=== PATIENT | female | born 1925 | race Caucasian/White ===

== ENCOUNTER 2016-04-10 15:44 | Emergency (ER) | payer MEDICARE, MEDICAID ==
[~2016-04-10] VITALS: Ht 162.6 cm; Wt 54.4 kg
[~2016-04-10 15:44] MED LIST: AMLO10TA2 PO; ASPI-983 PO; CALC667C10 PO; CEFD300C3 PO; CHLO500T2 PO; CHOL20002 PO; CLON1TAB3 PO; CLOP75TA28 PO; CNC1KV IM; DOCU-143 PO; FERR-74 PO; FURO20TA4 PO; GABA-486 PO; HYDR-1231 PO; HYDR-3816 PO; LEVO250T7 PO; NITR100C PO; POLY17PO6 PO; POTA10CA43 PO; SODI650T PO; THIA100T12 PO
--- OUTSIDE RECORDS SUMMARY | 2016-04-10 15:48 | XMS REPORT | Continuity of Care Document ---
Author Author [facility] Organization [facility] Address Unknown Phone Unavailable Care Team Providers Care [place] Inspector Name Role Phone JARED GRIFFITH MD PCP Insurance Providers Payer Name Policy Number Subscriber Name Relationship Wps Medicare [id number] Mukesh Lucia W 18 Self / Same As Patient [facility] [id number] Mukesh Lucia W 18 Self / Same As Patient Advance Directives Directive Response Recorded Date/Time Advance Directives Yes 11/26/15 11:08am Health Care Power of Marine Structural Welder SERA GIORDANO 11/26/15 11:08am Organ Donor No 11/26/15 11:08am Resuscitation Status Full Code 11/26/15 11:08am Chief Complaint and Reason for Visit Chief Complaint Neurological Problems Reason for Visit Urinary tract infection Chronic disease anemia [id number] Problems Active Problems Medical Problem Onset Date Status Anemia Unknown Acute Chronic disease anemia Unknown Acute Chronic kidney disease (CKD), stage III (moderate) Unknown Acute Chronic renal failure Unknown Acute Renal insufficiency Unknown Acute Urinary tract infection Unknown Acute Medications Current Home Medications Medication Dose Units Route Directions Days/Qty Instructions Start Date Aspirin 81 Mg 81 Mg Oral Daily 10/08/15 Docusate Sodium 100 Mg 100 Mg Oral Daily 10/08/15 Potassium Chloride 10 Meq 10 Meq Oral Daily 10/08/15 Polyethylene Glycol 3350 17 Gm 17 Gm Oral Bedtime 10/08/15 Amlodipine Besylate 10 Mg 10 Mg Oral Daily 10/08/15 Clopidogrel Bisulfate 75 Mg 75 Mg Oral Daily 10/08/15 Thiamine Hcl 100 Mg 100 Mg Oral Daily 10/08/15 Cholecalciferol (Vitamin D3) 2,000 Unit 4,000 Unit Oral Daily TAKES 2 ( 2,000 UNIT) CAPSULES 10/08/15 Gabapentin 100 Mg 100 Mg Oral Twice A Day 10/08/15 Chlorzoxazone 500 Mg 500 Mg Oral Three Times A Day 10/08/15 Calcium Acetate 667 Mg 667 Mg Oral Three Times A Day 10/08/15 Sodium Bicarbonate 650 Mg 650 Mg Oral Three Times A Day 10/08/15 Cyanocobalamin 1,000 Mcg/Ml 1,000 Mcg Intramusc Every 60 Days Clonazepam 1 Mg 1 Mg Oral Twice A Day 10/08/15 Hydrocodone/Acetaminophen 1 Each 2 Tab Oral Three Times A Day 20 10/09 Ferrous Sulfate 325 Mg 325 Mg Oral Every 48 Hours 30 Days 10/10/15 Cefdinir (Omnicef) 300 Mg 300 Mg Oral Twice A Day 10 10/10/15 Cefdinir (Omnicef) 300 Mg 300 Mg Oral Twice A Day 14 11/26/15 Past Home Medications Medication Directions Ordered Status Levofloxacin 250 Mg Tab, 1 Each Oral Daily 04/16/14 Discontinued Hydrocodone Bit/Acetaminophen 1 Tab Tablet, 0.5 Tab Oral Every 6 Hours as needed for Pain 04/16/14 Discontinued Nitrofurantoin Macrocrystal 100 Mg Capsule, 100 Mg Oral Twice A Day 04/20/14 Discontinued Furosemide 20 Mg Tablet, 20 Mg Oral Daily 10/08/15 Discontinued Hydrocodone/Acetaminophen 1 Each Tablet, 2 Tab Oral Three Times A Day Discontinued Social History Social History Problem Response Recorded Date/Time Alcohol Use Denies Use 04/16/2014 10:12am Recreational Drug Use No 04/16/2014 10:12am Recent Foreign Travel No 11/26/2015 11:08am Recent Infectious Disease Exposure No 11/26/2015 11:08am Hospitalization with Isolation Denies 11/26/2015 11:08am Smoking Status Never a Smoker 11/26/2015 11:08am Recent Hopitalizations No 11/26/2015 11:08am Hospitalization with Isolation Denies 11/26/2015 11:08am Query Response Start Date Stop Date Smoking Status Never a Smoker Hospital Discharge Instructions No hospital discharge instructions. Plan of Care Discharge Date 11/26/15 3:39pm Disposition 01 HOME, SELF-CARE Condition at Discharge Improved Instructions/Education Provided Urinary Tract Infection in Women (ED) Prescriptions See Medication Section Referrals JARED GRIFFITH MD - Primary Care Physician Additional Instructions/Education All discharge instructions reviewed with patient and/or family. Voiced understanding. Medications as instructed. Continue all current medications and orders. Continue current diet. Ambulate with assistance of the walker. I will see patient next week at [facility]. Return to the emergency department immediately for recurrent weakness, slurred speech, changes in behavior, dizziness, headache, facial drooping, inability urinate, blood in the urine, fever, vomiting, or any other concerns. Functional Status Query Response Date Recorded Patient Orientation Person Confused Place Situation November 26, 2015 11:08am Comprehension Ability Understands Concepts November 26, 2015 11:08am Allergies, Adverse Reactions, Alerts Allergen Type Severity Reaction Status Last Updated Penicillins ([id number]) Allergy Unknown Active 04/16/14 Immunizations No immunization records. Vital Signs Acute Vital Signs Vital Response Date/Time Temperature (Fahrenheit) 97.8 degrees F (97.6 - 99.5) 11/26/2015 11:08am Temperature (Calculated Celsius) 36.46946 degrees C (36.4 - 37.5) 11/26/2015 11:08am Temperature Source Temporal 11/26/2015 11:08am Pulse Rate (adult) 86 bpm (60 - 90) 11/26/2015 3:39pm Respiratory Rate 18 bpm (12 - 24) 11/26/2015 3:39pm O2 Sat by Pulse Oximetry 94 % (88 - 100) 11/26/2015 3:39pm Blood Pressure 156/78 mm Hg 11/26/2015 3:39pm Blood Pressure Mean 112 mm Hg 11/26/2015 11:08am Pain Numeric Pain Scale 0-No Pain 11/26/2015 11:08am Height (Feet) 5 feet 11/26/2015 11:08am Height (Inches) 5 inches 11/26/2015 11:08am Height (Calculated Centimeters) 165.693901 cm 11/26/2015 11:08am Weight (Pounds) 160 pounds 11/26/2015 11:08am Weight (Calculated Kilograms) 72.497599 kilograms 11/26/2015 11:08am Capillary Refill Capillary Refill Less Than 3 Seconds 11/26/2015 11:08am Height 5 ft 5 in Weight 160 lb Body Mass Index 26.6 kg/m^2 Results Laboratory Results Test Name Result Units Flags Reference Collection Date/Time Result Date/ Time Comments White Blood Count 6.1 10^3/uL 4.3-11.0 11/26/2015 11:11/26/2015 11 :44am Red Blood Count 4.13 10^6/uL L 4.35-5.85 11/26/2015 11:11/26/2015 11 :44am Hemoglobin 10.5 G/DL L 11.5-16.0 11/26/2015 11:11/26/2015 11:44am Hematocrit 33 % L 35-52 11/26/2015 11:11/26/2015 11:44am Mean Corpuscular Volume 80 FL 80-99 11/26/2015 11:11/26/2015 11: 44am Mean Corpuscular Hemoglobin 25 PG 25-34 11/26/2015 11:11/26/2015 11:44am Mean Corpuscular Hemoglobin Concent 32 G/DL 32-36 11/26/2015 11: 11:44am Red Cell Distribution Width 18.0 % H 10.0-14.5 11/26/2015 11:2015 11:44am Platelet Count 235 10^3/uL 130-400 11/26/2015 11:11/26/2015 11: 44am Mean Platelet Volume 12.2 FL H 7.4-10.4 11/26/2015 11:11/26/2015 11: 44am Neutrophils (%) (Auto) 59 % 42-75 11/26/2015 11:11/26/2015 11: 44am Lymphocytes (%) (Auto) 30 % 12-44 11/26/2015 11:11/26/2015 11: 44am Monocytes (%) (Auto) 7 % 0-12 11/26/2015 11:11/26/2015 11:44am Eosinophils (%) (Auto) 3 % 0-10 11/26/2015 11:11/26/2015 11:44am Basophils (%) (Auto) 1 % 0-10 11/26/2015 11:11/26/2015 11:44am Neutrophils # (Auto) 3.6 X 10^3 1.8-7.8 11/26/2015 11:11/26/2015 11:44am Lymphocytes # (Auto) 1.8 X 10^3 1.0-4.0 11/26/2015 11:11/26/2015 11:44am Monocytes # (Auto) 0.5 X 10^3 0.0-1.0 11/26/2015 11:11/26/2015 11: 44am Eosinophils # (Auto) 0.2 10^3/uL 0.0-0.3 11/26/2015 11:11/26/2015 11:44am Basophils # (Auto) 0.1 10^3/uL 0.0-0.1 11/26/2015 11:11/26/2015 11 :44am Prothrombin Time 12.5 SEC 12.2-14.7 11/26/2015 12:10pm 11/26/2015 12: 26pm INR Comment 1.0 0.8-1.4 11/26/2015 12:10pm 11/26/2015 12:26pm INTERPRETIVE DATA SUGGESTED THERAPEUTIC RANGE FOR INR'S: VENOUS THROMBOSIS, PULMONARY EMBOLISM, OR PREVENTION OF SYSTEMIC EMBOLISM (EG. IN ATRIAL FIBRILLATION): 2.0 - 3.0 MECHANICAL PROSTHETIC HEART VALVES: 2.5 - 3.5* *NOTE: INR'S UP TO 4.5 MAY BE NECESSARY IN SELECTED GROUPS OF HIGH RISK PATIENTS. SIXTH CITIZEN OF [place] COLLEGE OF [employer]ST PH[employer]ICIANS CONSENSUS CONFERENCE ON ANTITHROMBOTIC THERAPY (2000). Activated Partial Thromboplast Time 29 SEC 24-35 11/26/2015 12:10pm 12:26pm Urine Color YELLOW 11/26/2015 12:53pm 11/26/2015 1:10pm Urine Clarity SLIGHTLY CLOUDY 11/26/2015 12:53pm 11/26/2015 1:10pm Urine pH 7 5-9 11/26/2015 12:53pm 11/26/2015 1:10pm Urine Specific [place] 1.010 * 1.016-1.022 11/26/2015 12:53pm 2015 1:10pm Urine Protein 2+ * NEGATIVE 11/26/2015 12:53pm 11/26/2015 1:10pm Urine Glucose (UA) NEGATIVE NEGATIVE 11/26/2015 12:53pm 11/26/2015 1: 10pm Urine RBC (Auto) 1+ * NEGATIVE 11/26/2015 12:53pm 11/26/2015 1:10pm Urine Ketones NEGATIVE NEGATIVE 11/26/2015 12:53pm 11/26/2015 1:10pm Urine Nitrite POSITIVE * NEGATIVE 11/26/2015 12:53pm 11/26/2015 1:10pm Urine Bilirubin NEGATIVE NEGATIVE 11/26/2015 12:53pm 11/26/2015 1: 10pm Urine Urobilinogen NORMAL MG/DL NORMAL 11/26/2015 12:53pm 11/26/2015 1: 10pm Urine Leukocyte Esterase 3+ * NEGATIVE 11/26/2015 12:53pm 11/26/2015 1: 10pm Urine RBC 0-2 /HPF 11/26/2015 12:53pm 11/26/2015 1:10pm Urine WBC 25-50 /HPF * 11/26/2015 12:53pm 11/26/2015 1:10pm Urine Bacteria LARGE /HPF * 11/26/2015 12:53pm 11/26/2015 1:10pm Urine Squamous Epithelial Cells 5-10 /HPF 11/26/2015 12:53pm 2015 1:10pm Urine Crystals NONE /LPF 11/26/2015 12:53pm 11/26/2015 1:10pm Urine Casts NONE /LPF 11/26/2015 12:53pm 11/26/2015 1:10pm Urine Mucus NEGATIVE /LPF 11/26/2015 12:53pm 11/26/2015 1:10pm Urine Culture Indicated YES 11/26/2015 12:53pm 11/26/2015 1:10pm Sodium Level 140 MMOL/L 135-145 11/26/2015 11:17am 11/26/2015 12:01pm Potassium Level 4.4 MMOL/L 3.6-5.0 11/26/2015 11:17am 11/26/2015 12: 01pm Chloride Level 106 MMOL/L 98-107 11/26/2015 11:17am 11/26/2015 12:01pm Carbon Dioxide Level 23 MMOL/L 21-32 11/26/2015 11:m 11/26/2015 12: 01pm Anion Gap 11 MMOL/L 5-14 11/26/2015 11:11/26/2015 12:01pm Blood Urea Nitrogen 32 MG/DL H 7-18 11/26/2015 11:11/26/2015 12: 01pm Creatinine 1.61 MG/DL H 0.60-1.30 11/26/2015 11:11/26/2015 12:01pm BUN/Creatinine Ratio 20 11/26/2015 11:11/26/2015 12:01pm Estimat Glomerular Filtration Rate 30 11/26/2015 11:2015 12:01pm GFR INTERPRETIVE DATA UNITS FOR ESTIMATED GFR (eGFR): mL/min/1.73 M2 REFERENCE RANGE FOR ESTIMATED GFR (eGFR) eGFR NORMAL eGFR >60 MODERATELY DECREASED eGFR 30-59 SEVERLY DECREASED eGFR 15-29 KIDNEY FAILURE <15 (OR DIALYSIS) Glucose Level 128 MG/DL H 70-105 11/26/2015 11:11/26/2015 12:01pm Calcium Level 9.3 MG/DL 8.5-10.1 11/26/2015 11:11/26/2015 12:01pm Magnesium Level 2.5 MG/DL H 1.8-2.4 11/26/2015 11:11/26/2015 12: 01pm Total Bilirubin 0.2 MG/DL 0.1-1.0 11/26/2015 11:11/26/2015 12: 01pm Alkaline Phosphatase 114 U/L 40-136 11/26/2015 11:11/26/2015 12: 01pm Aspartate Amino Transf (AST/SGOT) 15 U/L 5-34 11/26/2015 11:2015 12:01pm Alanine Aminotransferase (ALT/SGPT) 13 U/L 0-55 11/26/2015 11: 12:01pm Troponin I < 0.30 NG/ML <0.30 11/26/2015 11:11/26/2015 12:26pm Total Protein 6.9 G/DL 6.4-8.2 11/26/2015 11:11/26/2015 12:01pm Albumin 3.9 G/DL 3.2-4.5 11/26/2015 11:11/26/2015 12:01pm TSH [place] Testing 1.78 UIU/ML 0.35-4.94 11/26/2015 11:17am 2015 12:26pm Procedures Procedure Status Date Provider(s) Tracing only of electrocardiogram Completed 11/26/15 ADELAIDA CHEW Encounters Encounter Location Arrival/Admit Date Discharge/Depart Date Attending Provider Departed Emergency Room [facility] 11/26/15 11:11am 3:39pm ADELAIDA CHEW Recent Diagnosis
[2016-04-10] MEDS ORDERED: FURO20TA4 PO (16:28)
[2016-04-10] MEDS ORDERED: ONDA8TAB9 PO (16:28)
[2016-04-10] MEDS ORDERED: FAMO-119 PO (16:28)
[2016-04-10] MEDS ORDERED: DIPH25CA6 PO (16:28)
[2016-04-10] MEDS ORDERED: MELA3TAB PO (16:28)
[2016-04-10] MEDS ORDERED: LORA10TA52 PO (16:28)
[2016-04-10] MEDS ORDERED: DOCU-143 PO (16:28)
[2016-04-10] MEDS ORDERED: PRD20T PO (16:28)
--- NOTE | 2016-04-10 16:42 | ED Fall/Injury ---
General Chief Complaint: Trauma-Non Activation Stated Complaint: FALL Nursing Triage Note: EMS advised the pt. was assisting her roommate to stand when they both lost thier footing and fell. Pt. advises she struck her head on the wall but denies pain and denies loss of consciousness. Source: patient, EMS Exam Limitations: no limitations History of Present Illness Time seen by provider: 16:28 Initial Comments Here with report of hitting her head on a wall when she fell forward trying to help another resident out of the chair at her detention. Denies loss of consciousness, pain or other injury. Here for evaluation for CT head do to history of Plavix use. Location Injury Occurred: [facility] Occurred: this afternoon Severity: mild Injuries/Pain Location: head Context: lost balance Loss of Consciousness: no loss of consciousness Associated Symptoms (Fall): Denies Symptoms Allergies and Home Medications Allergies Coded Allergies: Penicillins (Unverified Allergy, Unknown, 04/16/14) Home Medications Amlodipine Besylate 10 Mg Tablet 10 MG PO DAILY (Reported) Aspirin 81 Mg Tablet.dr 81 MG PO DAILY (Reported) Calcium Acetate 667 Mg Capsule 667 MG PO TID (Reported) Chlorzoxazone 500 Mg Tablet 500 MG PO TID (Reported) Cholecalciferol (Vitamin D3) 2,000 Unit Capsule 4,000 UNIT PO DAILY (Reported) TAKES 2 (2,000 UNIT) CAPSULES Clonazepam 1 Mg Tablet 1 MG PO BID (Reported) Clopidogrel Bisulfate 75 Mg Tablet 75 MG PO DAILY (Reported) Cyanocobalamin 1,000 Mcg/Ml Inj 1,000 MCG IM EVERY 60 DAYS (Reported) Diphenhydramine HCl 25 Mg Capsule 25 MG PO (Reported) Docusate Sodium 100 Mg Capsule 100 MG PO DAILY (Reported) Famotidine 20 Mg Tablet 20 MG PO (Reported) Furosemide 20 Mg Tablet 20 MG PO (Reported) Gabapentin 100 Mg Capsule 100 MG PO BID (Reported) Hydrocodone/Acetaminophen 1 Each Tablet #20 2 TAB PO TID Prescribed by: PRUDENCE LYNCH on 10/10/15 1048 Loratadine 10 Mg Tablet 10 MG PO (Reported) Melatonin 3 Mg Tablet 3 MG PO (Reported) Ondansetron 8 Mg Tab.rapdis 8 MG PO (Reported) Polyethylene Glycol 3350 17 Gm Powd.pack 17 GM PO HS (Reported) Potassium Chloride 10 Meq Capsule.er 10 MEQ PO DAILY (Reported) Prednisone 20 Mg Tab 20 MG PO (Reported) Sodium Bicarbonate 650 Mg Tablet 650 MG PO TID (Reported) Thiamine HCl 100 Mg Tablet 100 MG PO DAILY (Reported) Constitutional: see HPINo chills, No fever Ears, Nose, Mouth, Throat: no symptoms reported Respiratory: no symptoms reported Cardiovascular: no symptoms reported Gastrointestinal: no symptoms reported Skin: no symptoms reported Psychiatric/Neurological: No Symptoms Reported Past Egxhtat-Layhat-Zqiftf Hx Patient Social History Alcohol Use: Denies Use Recreational Drug Use: No Smoking Status: Never a Smoker Recent Foreign Travel: No Contact w/Someone Who Travel: No Recent Infectious Disease Expo: No Recent Hopitalizations: No Immunizations Up To Date Tetanus Booster (TDap): Unknown PED Vaccines UTD: Yes Date of Pneumonia Vaccine: Nov 12, 2009 Seasonal Allergies Seasonal Allergies: No Surgeries HX Surgeries: Yes Surgeries: Gallbladder, Hysterectomy Respiratory Hx Respiratory Disorders: No Cardiovascular Hx Cardiac Disorders: Yes Cardiac Disorders: High Cholesterol, Hypertension Neurological Hx Neurological Disorders: Yes (essential tremor, especially involving the trunk) Neurological Disorders: Dementia, Stroke Reproductive System Hx Reproductive Disorders: No Genitourinary Hx Genitourinary Disorders: Yes (hyperactive bladder) Genitourinary Disorders: Kidney Infection, Bladder Infection, Renal Failure Gastrointestinal Hx Gastrointestinal Disorders: Yes Gastrointestinal Disorders: Abdominal Hernia, Gastroesophageal Reflux, Gastrointestinal Bleed, Chronic Constipation Musculoskeletal Hx Musculoskeletal Disorders: Yes Musculoskeletal Disorders: Arthritis Endocrine Hx Endocrine Disorders: Yes Endocrine Disorders: Diabetes, Non-Insulin dep HEENT HX ENT Disorders: No Loss of Vision: Denies Hearing Impairment: Denies Cancer Hx Cancer: No Psychosocial Hx Psychiatric Problems: Yes Behavioral Health Disorders: Sleep Difficulties, Anxiety Integumentary HX Skin/Integumentary Disorder: No Blood Transfusions Hx Blood Disorders: Yes (pernicious anemia) Reviewed Nursing Assessment Reviewed/Agree w Nursing PMH: Yes Family Medical History Significant Family History: No Pertinent Family Hx Physical Exam Vital Signs Vital Sign - Last 12Hours Capillary Refill : Less Than 3 Seconds General Appearance: WD/WN no apparent distress HEENT: PERRL/EOMI pharynx normal Neck: non-tender full range of motion supple normal inspection Cardiovascular: regular rate, rhythm no murmur Respiratory: lungs clear normal breath sounds Gastrointestinal: non tender soft Back: normal inspection no CVA tenderness no vertebral tenderness Extremities: non-tender normal inspection Neurologic/Psychiatric: alert normal mood/affect oriented x 3 Skin: normal color warm/dry [place] Coma Score Best Eye Response: (4) Open Spontaneously Best Verbal Response: (5) Oriented Best Motor Response: (6) Obeys Commands Progress/Results/Core Measures Results/Orders My Orders Orders-HENRIK CEDENO MD Ct Head Wo (04/10/16 15:52) Vital Signs/I&O Vital Sign - Last 12Hours 04/10/16 04/10/16 15:56 15:56 Temp 98.6 98.6 Pulse 86 83 Resp 14 B/P 152/92 152/92 Pulse Ox 94 94 O2 Delivery Room Air Room Air Blood Pressure Mean: 112 Progress Note : Progress Note Seen and evaluated. CT head ordered. No significant findings. Discharge back to detention. Patient verbalize understanding instructions and agreement with plan. Diagnostic Imaging Diagonstic Imaging: CT Plain Films/CT/US/NM/MRI: head Comments NAME: MUKESH LUCIA MED REC#: [id number] PT STATUS: REG ER : 1925 PHYSICIAN: HENRIK CEDENO MD ADMIT DATE: 04/10/16/ER Draft Date of Exam:04/10/16 CT HEAD WO INDICATION: Fall. EXAMINATION: CT brain from 04/10/2016. COMPARISON: 02/04/2016. FINDINGS: Chronic changes are seen throughout the brain with no superimposed acute hemorrhage or infarct. No mass, mass effect or midline shift is noted and there is diffuse atrophy. No depressed calvarial fractures are identified. The visualized sinuses demonstrate no acute abnormality. IMPRESSION: Diffuse chronic changes, as described. No superimposed acute abnormality. Dictated on workstation # [id number] Dict: 04/10/16 1620 Trans: 04/10/16 1639 [facility] [id number] Interpreted by: MAUDE ZARAGOZA MD Electronically signed by: Reviewed: Reviewed by Me Departure Impression Impression: Primary Impression: Minor head injury Qualified Code: S00.90XA - Unspecified superficial injury of unspecified part of head, initial encounter Disposition: 01 HOME, SELF-CARE Condition: Improved Departure-Patient Inst. Decision time for Depature: 16:41 Referrals: JARED GRIFFITH MD (PCP/Family) Primary Care Physician Patient Instructions: Minor Head Injury (DC) Add. Discharge Instructions: All discharge instructions reviewed with patient and/or family. Voiced understanding. Continue home medications as directed. Return for worsening, fever, vomiting, weakness, vision or balance problems or other concerns as needed. Follow-up with your DrTutu in a few days for recheck. HENRIK CEDENO MD Apr 10, 2016 16:42
[2016-04-10 18:03] VITALS: BP 152/92
== END 2016-04-10 18:03 | disposition home or self-care (01) ==
LOC: ER 15:44 → EDUNIT# 15:44 → ER 18:03
DX: S09.90XA Unspecified injury of head, initial encounter (principal); I10 Essential (primary) hypertension; E11.9 Type 2 diabetes mellitus without complications; Z79.82 Long term (current) use of aspirin; Z79.02 Long term (current) use of antithrombotics/antiplatelets; Z79.899 Other long term (current) drug therapy; W01.198A Fall on same level from slipping, tripping and stumbling with subsequent striking against other object, initial encounter; Y92.129 Unspecified place in nursing home as the place of occurrence of the external cause; Y99.8 Other external cause status
CPT/HCPCS: 70450; 99282